=== PATIENT | female | born 1935 | race Two or more races ===

== ENCOUNTER 2018-03-04 09:03 | Outpatient (CLI) | payer OTHER ==
[~2018-03-04 09:03] MED LIST: ASA81 MG; CIPRO500 MG; COZAAR50 MG; TRAMADOL HCL-AP1 TAB
== END 2018-03-04 13:37 | disposition home or self-care (01) ==
LOC: TOM 09:03
DX: K57.01 Diverticulitis of small intestine with perforation and abscess with bleeding (principal)

== ENCOUNTER 2018-09-23 10:28 | Emergency (ER) | payer OTHER ==
[~2018-09-23] VITALS: Ht 134.6 cm; Wt 67.1 kg
[2018-09-23] MEDS ORDERED: COZAAR25 MG PO (10:46)
[2018-09-23] MEDS ORDERED: AVAPRO75 MG PO (10:46)
== END 2018-09-23 13:55 | disposition home or self-care (01) ==
LOC: ER 10:28
DX: L01.03 Bullous impetigo (principal); B95.7 Other staphylococcus as the cause of diseases classified elsewhere

== ENCOUNTER 2020-03-28 08:15 | Outpatient (CLI) | payer OTHER ==
[~2020-03-28 08:15] MED LIST changes: +AVAPRO75 MG PO; +COZAAR25 MG PO
== END 2020-03-28 08:26 | disposition home or self-care (01) ==
LOC: TOM 08:15
PROVIDERS: ATTEND Specialist
DX: K57.52 Diverticulitis of both small and large intestine without perforation or abscess without bleeding (principal)

== ENCOUNTER 2020-08-21 10:00 | Outpatient (CLI) | payer OTHER | END 2020-08-21 10:04 | disposition home or self-care (01) | LOC: LAB 10:00 | PROVIDERS: ATTEND Internal Medicine Cardiovascular Disease | DX: I50.9 Heart failure, unspecified (principal) ==

== ENCOUNTER 2020-08-26 10:16 | Outpatient (CLI) | payer OTHER | END 2020-08-26 10:22 | disposition home or self-care (01) | LOC: TOM 10:16 | PROVIDERS: ATTEND Specialist | DX: K57.90 Diverticulosis of intestine, part unspecified, without perforation or abscess without bleeding (principal); D12.2 Benign neoplasm of ascending colon; Z86.010 Personal history of colon polyps; K51.411 Inflammatory polyps of colon with rectal bleeding ==

== ENCOUNTER 2020-11-12 14:17 | Outpatient (CLI) | payer OTHER | END 2020-11-12 14:26 | disposition home or self-care (01) | LOC: RAD 14:17 | PROVIDERS: ATTEND Specialist | DX: J45.998 Other asthma (principal); I50.9 Heart failure, unspecified ==

== ENCOUNTER 2020-11-19 11:08 | Outpatient (CLI) | payer OTHER | END 2020-11-19 11:09 | disposition home or self-care (01) | LOC: NUCLEAR 11:08 | PROVIDERS: ATTEND Internal Medicine Cardiovascular Disease | DX: E85.89 Other amyloidosis (principal) ==

== ENCOUNTER 2020-11-28 07:33 | Outpatient (CLI) | payer OTHER | END 2020-11-28 07:38 | disposition home or self-care (01) | LOC: LAB 07:33 | PROVIDERS: ATTEND Internal Medicine Cardiovascular Disease | DX: I11.9 Hypertensive heart disease without heart failure (principal) ==

== ENCOUNTER → 2021-02-10 08:23 | Outpatient (CLI) | payer OTHER | END | disposition home or self-care (01) | LOC: LAB 08:23 | PROVIDERS: ATTEND Specialist | DX: I51.7 Cardiomegaly (principal); D64.89 Other specified anemias; E11.65 Type 2 diabetes mellitus with hyperglycemia; N39.0 Urinary tract infection, site not specified; E78.2 Mixed hyperlipidemia; E03.8 Other specified hypothyroidism; J45.998 Other asthma ==

== ENCOUNTER 2021-02-12 11:34 | Outpatient (CLI) | payer OTHER | END 2021-02-12 11:46 | disposition home or self-care (01) | LOC: NUCLEAR 11:34 | PROVIDERS: ATTEND Specialist | DX: M81.0 Age-related osteoporosis without current pathological fracture (principal) ==

== ENCOUNTER 2021-03-18 07:30 | Outpatient (CLI) | payer OTHER | END 2021-03-18 07:31 | disposition home or self-care (01) | LOC: LAB 07:30 | PROVIDERS: ATTEND Specialist | DX: E21.0 Primary hyperparathyroidism (principal); E21.1 Secondary hyperparathyroidism, not elsewhere classified; E11.65 Type 2 diabetes mellitus with hyperglycemia ==

== ENCOUNTER 2021-09-17 08:13 | Outpatient (CLI) | payer OTHER | END 2021-09-17 11:03 | disposition home or self-care (01) | LOC: LAB 08:13 | PROVIDERS: ATTEND Specialist | DX: E03.9 Hypothyroidism, unspecified (principal); E11.21 Type 2 diabetes mellitus with diabetic nephropathy; N39.9 Disorder of urinary system, unspecified; E78.2 Mixed hyperlipidemia; Z12.11 Encounter for screening for malignant neoplasm of colon; D64.9 Anemia, unspecified; J45.998 Other asthma; K75.81 Nonalcoholic steatohepatitis (NASH); E11.65 Type 2 diabetes mellitus with hyperglycemia ==

== ENCOUNTER 2021-09-17 08:52 | Outpatient (CLI) | payer OTHER | END 2021-09-17 09:00 | disposition home or self-care (01) | LOC: RAD 08:52 | PROVIDERS: ATTEND Specialist | DX: J45.998 Other asthma (principal) ==

== ENCOUNTER 2021-11-01 19:02 | Emergency (ER) | payer OTHER ==
[~2021-11-01] VITALS: Ht 162.6 cm; Wt 67.1 kg
== END 2021-11-01 22:24 | disposition home or self-care (01) ==
LOC: ER 19:02
DX: S42.211A Unspecified displaced fracture of surgical neck of right humerus, initial encounter for closed fracture (principal); W18.30XA Fall on same level, unspecified, initial encounter; Y93.9 Activity, unspecified; Y92.9 Unspecified place or not applicable

== ENCOUNTER 2021-11-04 07:43 | Outpatient (CLI) | payer OTHER | END 2021-11-04 07:50 | disposition home or self-care (01) | LOC: LAB 07:43 | PROVIDERS: ATTEND Internal Medicine Cardiovascular Disease | DX: E11.9 Type 2 diabetes mellitus without complications (principal); I42.5 Other restrictive cardiomyopathy ==

== ENCOUNTER 2021-12-15 08:47 | Outpatient (CLI) | payer OTHER | END 2021-12-15 08:54 | disposition home or self-care (01) | LOC: LAB 08:47 | PROVIDERS: ATTEND Specialist | DX: E03.9 Hypothyroidism, unspecified (principal); D64.9 Anemia, unspecified; E11.65 Type 2 diabetes mellitus with hyperglycemia; E78.2 Mixed hyperlipidemia; K75.81 Nonalcoholic steatohepatitis (NASH) ==

== ENCOUNTER 2022-02-24 08:45 | Outpatient (CLI) | payer OTHER | END 2022-02-24 08:48 | disposition home or self-care (01) | LOC: NUCLEAR 08:45 | PROVIDERS: ATTEND Internal Medicine Cardiovascular Disease | DX: I11.0 Hypertensive heart disease with heart failure (principal); I50.9 Heart failure, unspecified | CPT/HCPCS: 78803; A9538 ==

== ENCOUNTER → 2022-04-03 08:23 | Outpatient (CLI) | payer OTHER | END | disposition home or self-care (01) | LOC: LAB 08:23 | PROVIDERS: ATTEND Specialist | DX: E11.69 Type 2 diabetes mellitus with other specified complication (principal); D64.89 Other specified anemias; E03.8 Other specified hypothyroidism; E11.21 Type 2 diabetes mellitus with diabetic nephropathy; N39.9 Disorder of urinary system, unspecified; Z13.220 Encounter for screening for lipoid disorders; J45.998 Other asthma ==

== ENCOUNTER 2022-05-18 12:38 | Inpatient (IN) | payer OTHER ==
[~2022-05-18] VITALS: Ht 152.4 cm; Wt 63.5 kg
--- NOTE | 2022-05-18 13:34 | NUR ---
PTE ALERTA Y ORIENTADA POR BINTA ESFERAS CON BUEN PATRON RESPIRATORIO. REFIERE QUE DESDE HACE 2 SEMANAS SE SIENTE FATIGADA Y DE VEZ EN CUANDO PUNZACIONES EN PECHO DEL LADO RA. TIEEN REFERIDO DE PARA ER. SE REALIZA EKG Y SE PRESENTA A MEDICO DE TURNO.
--- NOTE | 2022-05-18 13:57 | NUR ---
RN ROSDO ORIENTA A PTE SOBRE TRATAMIENTO E INSTRUCCIONES A SEGUIR, JERZY REFIERE ENTENDER. LE COLECTA MUESTRAS, SE CANALIZA Y SE ADMINISTRA MEDICAMENTO FERNANDO ORDEN MEDICA. PENDIENTE U/A Y CRYS X
--- NOTE | 2022-05-18 15:06 | NUR ---
SE RECIBE PTE FEMENINA DE 86 ANOS ALERTA Y ORIENTADO X3 QUIEN AL MOMENTO NO REIFER DOLOR. PTE PEND A RESULTADOS DE LAB Y RE EVALUACION MEDICA. PTE BAJO OBSERBACION POR CAMBIO EN HINDS CONDICION.
== END 2022-05-26 07:29 | disposition home or self-care (01) | DRG 292 ==
LOC: ER 12:38 → MEDI 17:07
PROVIDERS: ADMIT Specialist; ATTEND Specialist
PROC: B24BYZZ Ultrasonography of Heart with Aorta using Other Contrast (ICD-10-PCS; principal; 2022-05-19)
PROC: 4A12X4Z Monitoring of Cardiac Electrical Activity, External Approach (ICD-10-PCS; 2022-05-19)
PROC: B54DZZZ Ultrasonography of Bilateral Lower Extremity Veins (ICD-10-PCS; 2022-05-23)
DX: I50.9 Heart failure, unspecified (principal); E85.4 Organ-limited amyloidosis; I43 Cardiomyopathy in diseases classified elsewhere; I12.9 Hypertensive chronic kidney disease with stage 1 through stage 4 chronic kidney disease, or unspecified chronic kidney disease; N18.9 Chronic kidney disease, unspecified; Z95.0 Presence of cardiac pacemaker

== ENCOUNTER 2022-06-03 07:19 | Outpatient (CLI) | payer OTHER | END 2022-06-03 07:20 | disposition home or self-care (01) | LOC: LAB 07:19 | DX: E11.65 Type 2 diabetes mellitus with hyperglycemia (principal) ==

== ENCOUNTER 2022-06-23 08:13 | Emergency (ER) | payer OTHER ==
[~2022-06-23] VITALS: Ht 157.5 cm; Wt 63.5 kg
== END 2022-06-23 09:40 | disposition home or self-care (01) ==
LOC: ER 08:13
DX: I83.93 Asymptomatic varicose veins of bilateral lower extremities (principal); I11.0 Hypertensive heart disease with heart failure; I50.9 Heart failure, unspecified; Z88.0 Allergy status to penicillin; Z95.0 Presence of cardiac pacemaker

== ENCOUNTER 2022-07-05 23:14 | Emergency (ER) | payer OTHER ==
[~2022-07-05] VITALS: Ht 162.6 cm; Wt 63.5 kg
[2022-07-05] MEDS ORDERED: TOPROL XL50 M1 PO (23:39)
[2022-07-05] MEDS ORDERED: FUROSEMIDE20 MG PO (23:40)
[2022-07-05] MEDS ORDERED: GABAPENTIN100 M2 PO (23:40)
== END 2022-07-06 18:01 | disposition home or self-care (01) ==
LOC: ER 23:14
DX: R00.2 Palpitations (principal); I25.119 Atherosclerotic heart disease of native coronary artery with unspecified angina pectoris; I10 Essential (primary) hypertension; I49.9 Cardiac arrhythmia, unspecified; Z95.0 Presence of cardiac pacemaker; Z88.0 Allergy status to penicillin; I11.0 Hypertensive heart disease with heart failure; I50.9 Heart failure, unspecified; K29.70 Gastritis, unspecified, without bleeding; K21.9 Gastro-esophageal reflux disease without esophagitis

== ENCOUNTER 2022-07-15 07:35 | Outpatient (CLI) | payer OTHER ==
[~2022-07-15 07:35] MED LIST changes: +FUROSEMIDE20 MG PO; +GABAPENTIN100 M2 PO; +TOPROL XL50 M1 PO
== END 2022-07-15 07:36 | disposition home or self-care (01) ==
LOC: LAB 07:35
PROVIDERS: ATTEND Specialist
DX: N39.9 Disorder of urinary system, unspecified (principal); R07.89 Other chest pain; E03.8 Other specified hypothyroidism; D64.89 Other specified anemias; Z13.220 Encounter for screening for lipoid disorders; E11.69 Type 2 diabetes mellitus with other specified complication; E11.21 Type 2 diabetes mellitus with diabetic nephropathy; M00.80 Arthritis due to other bacteria, unspecified joint; I50.41 Acute combined systolic (congestive) and diastolic (congestive) heart failure

== ENCOUNTER 2022-07-20 11:55 | Outpatient (CLI) | payer OTHER | END 2022-07-20 12:02 | disposition home or self-care (01) | LOC: RAD 11:55 | PROVIDERS: ATTEND Internal Medicine Cardiovascular Disease | DX: M16.12 Unilateral primary osteoarthritis, left hip (principal) ==

== ENCOUNTER 2022-11-08 22:26 | Emergency (ER) | payer OTHER ==
[~2022-11-08] VITALS: Ht 157.5 cm; Wt 59.9 kg
== END 2022-11-08 23:29 | disposition home or self-care (01) ==
LOC: ER 22:26
DX: M15.8 Other polyosteoarthritis (principal); Z88.0 Allergy status to penicillin; I10 Essential (primary) hypertension

== ENCOUNTER 2022-12-04 09:38 | Outpatient (CLI) | payer OTHER | END 2022-12-04 09:39 | disposition home or self-care (01) | LOC: NUCLEAR 09:38 | PROVIDERS: ATTEND Internal Medicine | DX: I11.0 Hypertensive heart disease with heart failure (principal); Z13.6 Encounter for screening for cardiovascular disorders; I50.42 Chronic combined systolic (congestive) and diastolic (congestive) heart failure; Z95.0 Presence of cardiac pacemaker; E85.4 Organ-limited amyloidosis; I48.0 Paroxysmal atrial fibrillation; I35.1 Nonrheumatic aortic (valve) insufficiency ==

== ENCOUNTER 2023-02-10 07:29 | Outpatient (CLI) | payer OTHER | END 2023-02-10 07:30 | disposition home or self-care (01) | LOC: LAB 07:29 | PROVIDERS: ATTEND Specialist | DX: E03.8 Other specified hypothyroidism (principal); E11.21 Type 2 diabetes mellitus with diabetic nephropathy; E11.69 Type 2 diabetes mellitus with other specified complication; N39.9 Disorder of urinary system, unspecified; M00.80 Arthritis due to other bacteria, unspecified joint; D64.89 Other specified anemias; R19.5 Other fecal abnormalities; Z13.220 Encounter for screening for lipoid disorders ==

== ENCOUNTER 2023-05-10 07:51 | Outpatient (CLI) | payer OTHER ==
[2023-05-10 09:12] LABS: HEMOGLOBIN 12.4 g/dL (12.0-15.00); MEAN CELL VOLUME 91.3 fL (80.00-100.00); MEAN CORPUSCULAR HEMOGLOBIN 30.5 pg (27.00-32.0); MEAN CORPUSCULAR HGB CONC 33.4 g/dl (32.0-36.0); PLATELET COUNT 189 K/uL (150-450); RED BLOOD COUNT 4.05 M/uL (4.00-6.00); RED CELL DISTRIBUTION WIDTH 14.6 % (11.5-14.5)
[2023-05-10 09:20] LABS: PH,URINE 5.5 (5.0-8.0); URINE APPEARANCE Clear; URINE BILIRRUBIN Negative (NEGATIVE); URINE BLOOD Moderate; URINE COLOR Dark Yellow; URINE GLUCOSE Negative (NEGATIVE); URINE LEUKOCYTE Trace; URINE NITRATE Negative; URINE PROTEIN 30 (NEGATIVE); URINE UROBILINOGEN 0.2 E.U./dl
[2023-05-10 09:25] LABS: URINE BACTERIA 36.5 uL (0.0-1933); URINE EPITHELIAL CELLS 14.6 uL (0.0-38.8); URINE RBC 49.7 uL (0.0-20.8); URINE WBC 21.6 uL (0.0-23.2)
[2023-05-10 10:36] LABS: ALBUMIN 3.3 gm/dL (3.4-5.0); BILIRUBIN TOTAL 0.82 mg/dL (0.3-1.2); CALCIUM 9.3 mg/dL (8.5-10.1); CHOL HDL RATIO 2.1 (0-5.0); CREATININE SERUM 0.79 mg/dL (0.55-1.02); FREE TRIODOTIRONINE 2.77 pg/ml (2.18-3.98); GFR 68.68; GLOBULINA 3.7 G/DL (2.4-3.5); POTASSIUM 3.85 mEq/L (3.5-5.1); T4 FREE 1.41 NG/ML (0.76-1.46); TSH 0.838 uIU/mL (0.358-3.74)
[2023-05-10 11:01] LABS: C-REACTIVE PROTEIN 0.34 MG/DL (0.00-0.29)
== END 2023-05-10 07:52 | disposition home or self-care (01) ==
LOC: LAB 07:51
PROVIDERS: ATTEND Specialist
DX: N39.9 Disorder of urinary system, unspecified (principal); E03.8 Other specified hypothyroidism; E11.69 Type 2 diabetes mellitus with other specified complication; Z13.220 Encounter for screening for lipoid disorders; D64.89 Other specified anemias; M00.08 Staphylococcal arthritis, vertebrae; Z88.0 Allergy status to penicillin

== ENCOUNTER → 2023-09-06 06:39 | Outpatient (CLI) | payer OTHER ==
[2023-09-06 07:32] LABS: URINE APPEARANCE Clear; URINE BILIRRUBIN Negative (NEGATIVE); URINE BLOOD Small; URINE COLOR Yellow; URINE GLUCOSE Negative (NEGATIVE); URINE LEUKOCYTE Negative; URINE NITRATE Negative; URINE PROTEIN Negative (NEGATIVE); URINE UROBILINOGEN 0.2 E.U./dl
[2023-09-06 07:36] LABS: URINE BACTERIA 6.2 uL (0.0-1933); URINE RBC 24.2 uL (0.0-20.8); URINE WBC 2.2 uL (0.0-23.2)
[2023-09-06 08:11] LABS: ALBUMIN 3.6 gm/dL (3.4-5.0); BILIRUBIN TOTAL 0.63 mg/dL (0.3-1.2); CALCIUM 9.6 mg/dL (8.5-10.1); CHOL HDL RATIO 2.3 (0-5.0); CREATININE SERUM 0.88 mg/dL (0.55-1.02); FREE TRIODOTIRONINE 2.93 pg/ml (2.18-3.98); GFR 60.64; GLOBULINA 3.4 G/DL (2.4-3.5); POTASSIUM 3.78 mEq/L (3.5-5.1); T4 FREE 1.36 NG/ML (0.76-1.46); TSH 1.3 uIU/mL (0.358-3.74)
== END | disposition home or self-care (01) ==
LOC: LAB 06:39
PROVIDERS: ATTEND Specialist
DX: N39.9 Disorder of urinary system, unspecified (principal); E03.8 Other specified hypothyroidism; D64.89 Other specified anemias; E11.21 Type 2 diabetes mellitus with diabetic nephropathy; N25.81 Secondary hyperparathyroidism of renal origin; Z13.220 Encounter for screening for lipoid disorders